=== PATIENT | female | born 1965 | race Caucasian/White ===

== ENCOUNTER 2016-12-09 14:32 | Emergency (ER) | payer OTHER ==
[2016-12-09 14:45] VITALS: BP 141/90; PULSE 83; TEMP 98.2; BMI 27.4
--- NOTE | 2016-12-09 14:55 | PDOC ---
History of Present Illness - General Chief Complaint: Injury Stated Complaint: LEFT FOOT PAIN Time Seen by Provider: 12/09/16 14:53 History Source: Patient Exam Limitations: No Limitations - History of Present Illness Initial Comments: 12/09/16 14:55 CHIEF COMPLAINT: Ankle pain HISTORY OF PRESENT ILLNESS: This is a 51 year old female with a history of right breast ca s/p chemo/RTX/surgery 4 yrs ago, on Aromasin, who presents complaining of left ankle and foot pain after twisting her ankle while stepping off a curb today. She is unable to bear weight. REVIEW OF SYSTEMS: GENERAL/CONSTITUTIONAL: No fever or chills. No weakness. No weight change. MUSCULOSKELETAL: See HPI. SKIN: No rash or easy bruising. NEUROLOGIC: No headache, vertigo, loss of consciousness, or loss of sensation. HEMATOLOGIC/LYMPHATIC: No anemia, easy bleeding, or history of blood clots. ALLERGIC/IMMUNOLOGIC: No hives or skin allergy. No latex allergy. PHYSICAL EXAM: GENERAL: The patient is awake, alert, and fully oriented, in no acute distress. EXTREMITIES: Swelling and tenderness at left lateral malleolus. DP/PT pulses 2+ . Movement and sensation of toes intact. NEUROLOGICAL: Normal speech. CN II-XII grossly intact. PSYCH: Normal mood, normal affect. SKIN: Warm, dry, normal turgor, no rashes or lesions noted. Past History - Past Medical History Allergies/Adverse Reactions: Allergies Allergy/AdvReac Type Severity Reaction Status Date / Time No Known Drug Allergies Allergy Verified 10/26/13 10:05 Home Medications: Ambulatory Orders Exemestane [Aromasin -] 25 mg PO DAILY 12/09/16 Ibuprofen [Motrin -] 600 mg PO QID #30 tablet 12/09/16 Oxycodone HCl/Acetaminophen [Percocet 5-325 mg Tablet] 1 tab PO Q6H PRN #20 tablet MDD 8 tabs 12/09/16 Anemia: Yes Asthma: No Cancer: Yes (right breast) Cardiac Disorders: No CVA: No COPD: No CHF: No Dementia: No Diabetes: No GI Disorders: No Disorders: No HTN: No Hypercholesterolemia: No Liver Disease: No Seizures: No Thyroid Disease: No - Surgical History Abdominal Surgery: Yes (rayshawn richardson) Appendectomy: No Cardiac Surgery: No Cholecystectomy: No Lung Surgery: No Neurologic Surgery: No Orthopedic Surgery: No - Psycho/Social/Smoking Cessation Hx Anxiety: No Suicidal Ideation: No Smoking Status: No Smoking History: Never smoked Have you smoked in the past 12 months: No Number of Cigarettes Smoked Daily: 0 Information on smoking cessation initiated: No Hx Alcohol Use: No Drug/Substance Use Hx: No Substance Use Type: None, Alcohol Hx Substance Use Treatment: No *Physical Exam - Vital Signs Last Vital Signs Temp Pulse Resp BP Pulse Ox 98.2 F 83 18 141/90 96 12/09/16 14:43 12/09/16 14:43 12/09/16 14:43 12/09/16 14:43 12/09/16 14:43 Procedures - Splinting Splint Location: Left: Ankle Pre-Proc Neuro Vasc Exam: normal Hand-Made Type: orthoglass Splint Type: Yes: Short Leg Post-Proc Neuro Vasc Exam: normal Landen Bandage: 4" Complications: No ED Treatment Course - RADIOLOGY Radiology Studies Ordered: Category Date Time Status ANKLE & FOOT-LEFT* [RAD] Stat Radiology 12/09/16 14:54 Ordered Medical Decision Making - Medical Decision Making 12/09/16 15:40 A/P: 51 year old female with left ankle injury. Normal neurovascular exam. 1. Ibuprofen for pain 2. Xray 3. Re-assess 12/09/16 16:35 Xray reviewed: distal fibular fracture and 5th metatarsal base fracture. Splinted. Ambulance requested for return home as patient lives in 4th floor walk -up. *DC/Admit/Observation/Transfer Diagnosis at time of Disposition: Left fibular fracture Qualifiers: Encounter type: initial encounter Fibula location: distal Fracture type: closed Fracture morphology: unspecified fracture morphology Qualified Code(s): S82.832A - Other fracture of upper and lower end of left fibula, initial encounter for closed fracture Fracture of fifth metatarsal bone of left foot Qualifiers: Encounter type: initial encounter Fracture type: closed Fracture alignment: nondisplaced Qualified Code(s): S92.355A - Nondisplaced fracture of fifth metatarsal bone, left foot, initial encounter for closed fracture - Discharge Dispostion Condition at time of disposition: Stable Admit: No - Prescriptions Prescriptions: Ibuprofen [Motrin -] 600 mg PO QID #30 tablet Oxycodone HCl/Acetaminophen [Percocet 5-325 mg Tablet] 1 tab PO Q6H PRN #20 tablet MDD 8 tabs PRN Reason: Pain - Referrals Referrals: Silvia Nova [Primary Care Provider] - Abdullahi Eddy MD [Staff Physician] - Call tomorrow (Orthopedics) - Patient Instructions Printed Discharge Instructions: DI for Ankle Fracture, DI for Foot Fracture Additional Instructions: -Take ibuprofen as prescribed for pain and swelling and add Percocet as needed for severe pain -Keep the splint in place and use crutches to avoid weight-bearing -Apply ice over the splint for 15 minutes at a time 5 times a day -Follow up with the orthopedist (referral enclosed) for further evaluation and treatment -Return here for loss of sensation in the toes, cold/numb/pale foot, or any other concerning symptoms
[2016-12-09] MEDS ORDERED: IBUPROFEN 600 MG TABLET (FP) PO ONE ×2 (15:34→15:37)
== END 2016-12-09 16:58 | disposition home or self-care (01) ==
LOC: JERFT 14:32
PROC: 2W3RX1Z Immobilization of Left Lower Leg using Splint (ICD-10-PCS; principal; 2016-12-09)
DX: S82.832A Other fracture of upper and lower end of left fibula, initial encounter for closed fracture (principal); S92.355A Nondisplaced fracture of fifth metatarsal bone, left foot, initial encounter for closed fracture; X50.1XXA Overexertion from prolonged static or awkward postures, initial encounter; Y93.01 Activity, walking, marching and hiking; Y92.480 Sidewalk as the place of occurrence of the external cause; Y99.8 Other external cause status
CPT/HCPCS: 29515; 73610-TC-LT; 73630-TC-LT; 99282-25